=== PATIENT | female | born 1975 | race Caucasian/White ===

== ENCOUNTER 2017-11-26 22:58 | Emergency (ER) | payer BC ==
[2017-11-26 23:55] LABS: ABS Basophils 0.1 10^3/ul (0-0.2); ABS Eosinophils 0.1 10^3/ul (0-0.6); ABS Lymphocytes 1.9 10^3/ul (1.0-4.8); ABS Monocytes 0.7 10^3/ul (0-0.8); ABS Neutrophils 6.9 10^3/ul (1.5-7.7); ABS Nucleated RBC 0 10^3/ul; Eosinophil % 0.8 % (0-6); Hematocrit 36 % (35-47); Hemoglobin 12.7 g/dl (12.0-16.0); Lymphocyte % 19.9 % (25-47); Mean Corpuscular HGB Conc 35 g/dl (31-36); Mean Corpuscular Hemoglobin 31 pg (27-31); Mean Corpuscular Volume 89 fL (80-97); Mean Platelet Volume 8.3 um3 (7.4-10.4); Nucleated Red Blood Cells % 0.1; Platelet Count 228 10^3/ul (150-450); Red Blood Count 4.07 10^6/ul (4.00-5.40); Red Cell Distribution Width 13 % (10.5-15); White Blood Count 9.6 10^3/ul (3.5-10.8)
[2017-11-27 00:13] LABS: EGFR Non-African American 71.7 (>60)
[2017-11-27] MEDS ORDERED: Metoclopramide IV* 5 MG/ML 2 ML VIAL IV ONE (00:19)
[2017-11-27] MEDS ORDERED: Ketorolac INJ* 30 MG/ML 1 ML VIAL IV PUSH ONE (00:19)
[2017-11-27] MEDS ORDERED: diPHENhydraMINE IV* 50 MG/ML 1 ml VIAL (BENADRYL) IV ONE (00:19)
[2017-11-27] MEDS ORDERED: NS 0.9% 1000 ML* 1,000 ML IV ONE (00:19)
[2017-11-27 01:52] LABS: Urine Appearance Cloudy; Urine Blood Negative (Negative); Urine Color Yellow; Urine Ketones Negative (Negative); Urine Protein Negative (Negative); Urine Specific Gravity 1.017 (1.010-1.030); Urine Urobilinogen Negative (Negative)
[2017-11-27] MEDS ORDERED: Iohexol 300* (CONTRAST) 10 ML SDV IV ONE (02:49)
[2017-11-27 03:47] VITALS: BP 110/68
--- NOTE | 2017-11-27 04:02 | ED ---
Rafael Holley Tariq, scribed for Omi Downs MD on 11/27/17 at 0033 . Abdominal Pain/Female - HPI Summary HPI Summary: A 42 y/o female pt presents to the ED c/o severe abdominal pain. Stomach aches started yesterday, however started become more severe today at 1700. She can move, however it is painful. Additional Sx include nausea. She noticed changes in bowels for the past few weeks as she had diarrhea and constipation. Additionally c/o low-grade fever. Pt denies any urinnation Sx, however, she goes more frequently. PMHx diverticulitis (2 years ago). - History of Current Complaint Chief Complaint: EDAbdPain Stated Complaint: ABD PAIN Time Seen by Provider: 11/26/17 23:39 Hx Obtained From: Patient Hx Last Menstrual Period: 2 weeks ago Onset/Duration: Sudden Onset, Lasting Days Severity Initially: Mild Severity Currently: Severe Pain Intensity: 9 Pain Scale Used: 0-10 Numeric Location: Other - Unspecified lower abdominal pain Aggravating Factor(s): Nothing Alleviating Factor(s): Nothing Associated Signs and Symptoms: Positive: Urinary Symptoms - More frequent breaks , Nausea, Diarrhea Allergies/Adverse Reactions: Allergies Allergy/AdvReac Type Severity Reaction Status Date / Time Cephalosporins Allergy Anaphylatic Verified 11/26/17 23:03 Shock PMH/Surg Hx/FS Hx/Imm Hx Endocrine/Hematology History: Denies: Hx Diabetes Psychiatric History: Reports: Hx Anxiety - ON DAILY MEDS - Surgical History Surgery Procedure, Year, and Place: 1984 LEFT ARM FRACTURE [facility]. 1995 & 2002 bilateral LEFT knee [facility]. 05/2009 RT [facility] Hx Anesthesia Reactions: No Infectious Disease History: No Infectious Disease History: Denies: Hx Clostridium Difficile, Hx Hepatitis, Hx Human Immunodeficiency Virus (HIV), Hx of Known/Suspected MRSA, Hx Shingles, Hx Tuberculosis, Hx Known/ Suspected VRE, Hx Known/Suspected VRSA, History Other Infectious Disease, Traveled Outside the [place] in Last 30 Days - Family History Known Family History: Negative: Cardiac Disease, Hypertension, Diabetes, Seizure Disorder - Social History Alcohol Use: Weekly Alcohol Amount: 2-3 GLASSES WINE/WEEK Substance Use Type: Reports: None Smoking Status (MU): Never Smoked Tobacco Have You Smoked in the Last Year: No Review of Systems Negative: Fever Positive: Abdominal Pain, Diarrhea Positive: no symptoms reported - frequent breaks All Other Systems Reviewed And Are Negative: Yes Physical Exam - Summary Physical Exam Summary: Appearance: Well appearing, no pain distress Skin: warm, dry, reflects adequate perfusion Head/face: normal Eyes: EOMI, DWAYNE ENT: normal, mucous membranes moist. Neck: supple, non-tender Respiratory: CTA, breath sounds present Cardiovascular: RRR, pulses symmetrical Abdomen: guarded LLQ, decreased bowel sounds, tender RLQ Bowel Sounds: present Musculoskeletal: normal, strength/ROM intact Neuro: normal, sensory motor intact, A&Ox3 Triage Information Reviewed: Yes Vital Signs On Initial Exam: Initial Vitals Temp Pulse Resp BP Pulse Ox 98.4 F 100 18 125/92 99 11/26/17 23:00 11/26/17 23:00 11/26/17 23:00 11/26/17 23:00 11/26/17 23:00 Vital Signs Reviewed: Yes Diagnostics - Vital Signs Vital Signs Temp Pulse Resp BP Pulse Ox 11/26/17 23:00 98.4 F 100 18 125/92 99 - Laboratory Lab Results: Lab Results 11/26/17 11/26/17 11/26/17 Range/Units 23:48 23:48 23:48 WBC 9.6 (3.5-10.8) 10^3/ul RBC 4.07 (4.00-5.40) 10^6/ul Hgb 12.7 (12.0-16.0) g/dl Hct 36 (35-47) % MCV 89 (80-97) fL MCH 31 (27-31) pg MCHC 35 (31-36) g/dl RDW 13 (10.5-15) % Plt Count 228 (150-450) 10^3/ul MPV 8.3 (7.4-10.4) um3 Neut % (Auto) 71.5 (38-83) % Lymph % (Auto) 19.9 L (25-47) % [place] % (Auto) 7.2 H (0-7) % Eos % (Auto) 0.8 (0-6) % Baso % (Auto) 0.6 (0-2) % Absolute Neuts (auto) 6.9 (1.5-7.7) 10^3/ul Absolute Lymphs (auto) 1.9 (1.0-4.8) 10^3/ul Absolute Monos (auto) 0.7 (0-0.8) 10^3/ul Absolute Eos (auto) 0.1 (0-0.6) 10^3/ul Absolute Basos (auto) 0.1 (0-0.2) 10^3/ul Absolute Nucleated RBC 0 10^3/ul Nucleated RBC % 0.1 Sodium 135 (135-145) mmol/L Potassium 3.7 (3.5-5.0) mmol/L Chloride 101 (101-111) mmol/L Carbon Dioxide 24 (22-32) mmol/L Anion Gap 10 (2-11) mmol/L BUN 12 (6-24) mg/dL Creatinine 0.86 (0.51-0.95) mg/dL Est GFR ( Amer) 92.2 (>60) Est GFR (Non-Af Amer) 71.7 (>60) BUN/Creatinine Ratio 14.0 (8-20) Glucose 121 H (70-100) mg/dL Lactic Acid 1.3 (0.5-2.0) mmol/L Calcium 9.3 (8.6-10.3) mg/dL Total Bilirubin 0.30 (0.2-1.0) mg/dL AST 19 (13-39) U/L ALT 23 (7-52) U/L Alkaline Phosphatase 69 (34-104) U/L C-Reactive Protein 6.59 H (< 5.00) mg/L Total Protein 6.7 (6.4-8.9) g/dL Albumin 4.0 (3.2-5.2) g/dL Globulin 2.7 (2-4) g/dL Albumin/Globulin Ratio 1.5 (1-3) Lipase 31 (11.0-82.0) U/L Beta HCG, Quant < 0.60 mIU/mL Result Diagrams: 11/26/17 23:48 11/26/17 23:48 Lab Statement: Any lab studies that have been ordered have been reviewed, and results considered in the medical decision making process. - CT CT A/P CT Interpretation Completed By: Radiologist - DOMINANT FOLLICLE IN THE LEFT OVARY. ED PHYSICIAN REVIEWED THIS RADIOLOGY REPORT. Re-Evaluation - Re-Evaluation First Eval Re-Evaluation Time: 03:43 Change: Improved Comment: PAIN HAS REALLY IMPROVED Abdominal Pain Fem Course/Dx - Course Course Of Treatment: Patient with no fever on entry but developed a low-grade fever shortly thereafter. She has history of diverticulitis with left lower quadrant/pelvic pain. She has hadsexual partners and no vaginal discharge. She is not bleeding irregularly. She was treated for discomfort here with great relief. A CT scan with contrast was performed and showed no diverticulitis. There is an incidental 2 CM LEFT OVARIAN DOMINANT FOLLICLE/ CYST. This is the exact area of her discomfort. Ultrasound is on a available to further characterize this at this hour. Again her pain is largely resolved making torsion unlikely, especially with a small cyst as lead point. Laboratories are benign-appearing. Patient will follow up closely with a call to her primary care physician in the morning. - Diagnoses Differential Diagnosis: Positive: Constipation, Diverticulitis, Ovarian Cyst, Pancreatitis, Urinary Tract Infection Provider Diagnoses: LUQ pain, Left ovarian cyst Discharge - Sign-Out/Discharge Documenting (check all that apply): Discharge/Admit/Transfer - Discharge - Discharge Plan Condition: Improved Disposition: HOME Prescriptions: Naproxen [Naproxen 500 mg tab] 500 mg PO BID PRN #10 tablet.dr PRN Reason: Pain Ondansetron [Zofran Odt] 4 mg PO TID PRN #6 tab.rapdis PRN Reason: Nausea Patient Education Materials: Ovarian Cyst (ED) Referrals: Xu Jessica MD [Primary Care Provider] - Additional Instructions: Call in the morning for follow up with your doctor. If you're still having discomfort a pelvic ultrasound can be obtained. Stay well-hydrated. Return with increased fever, worsening of pain, vomiting, new symptoms or other concerns as discussed. - Billing Disposition and Condition Condition: IMPROVED Disposition: Home The documentation as recorded by the Rafael mcintosh Tariq accurately reflects the service I personally performed and the decisions made by me, Omi Downs MD.
--- NOTE | 2017-11-27 08:13 | RAD ---
INDICATION: Left lower quadrant pain, history of diverticulitis. COMPARISON: Comparison is made with a prior study from March 16, 2016. TECHNIQUE: A CT scan of the abdomen and pelvis was performed with intravenous and with oral contrast following intravenous injection of 102 ml of Omnipaque 300 nonionic contrast. Contiguous axial sections were obtained from the lung bases through the symphysis pubis. Images were reconstructed in the coronal and sagittal planes. FINDINGS: The lung bases are clear. No pleural effusion is present. The liver and spleen are within normal limits in size without significant focal abnormality. No calcified gallstones are seen. The pancreas appears to be within normal limits in size. The kidneys and adrenal glands are normal in size. No hydronephrosis is seen. No significant focal renal abnormality is seen. The aorta is normal in caliber and demonstrates homogeneous contrast opacification. No significant enlarged retroperitoneal lymph nodes are seen. The stomach, small and large bowel appear nondistended. The appendix is within normal limits. There is mild to moderate descending and sigmoid diverticulosis without evidence for diverticulitis. There is a small periumbilical hernia containing fat. The uterus is normal in size. There are bilateral ovarian cysts measuring 2.1 cm on the right and 2.5 cm on the left. No free intraperitoneal air or fluid is seen. There is a mildly sclerotic lesion within the L1 vertebral body which is unchanged from the prior study. No other focal osseous abnormalities are seen. IMPRESSION: BILATERAL OVARIAN CYSTS DESCRIBED. IF THE PATIENT'S SYMPTOMS PERSIST CONSIDER FOLLOW-UP PELVIC ULTRASONOGRAPHY FOR FURTHER EVALUATION.
== END 2017-11-27 03:57 | disposition home or self-care (01) ==
LOC: ED 22:58
DX: N83.202 Unspecified ovarian cyst, left side (principal); R10.12 Left upper quadrant pain; R19.7 Diarrhea, unspecified; R11.0 Nausea; Z87.19 Personal history of other diseases of the digestive system
CPT/HCPCS: 36415; 74177; 80053; 81003; 83605; 83690; 84702; 85025; 86140; 96374; 96375; 99284; J1200; J1885; J2765; Q9967

== ENCOUNTER 2018-09-20 11:01 | Day surgery (SDC) | payer BC ==
--- NOTE | 2018-09-12 12:54 | HP ---
PREOPERATIVE HISTORY AND PHYSICAL: DATE OF SURGERY/ADMISSION: 09/20/18 DATE OF OFFICE VISIT/ENCOUNTER: 09/04/18 ATTENDING SURGEON: Melanie Villalpando MD* (dictated by SOHAN Melendez). PROCEDURE: Left elbow implant removal, possible open reduction and internal fixation, possible iliac crest bone graft, possible soft tissue allograft. HISTORY OF PRESENT ILLNESS: This is a 43-year-old female who underwent a radial head excision and replacement in 2016 after she suffered a fracture. She had done quite well with that and regained the vast majority of her motion. Unfortunately on 06/30/18, she tripped over a curb and fell and landed on her hands and knees and suffered a periprosthetic fracture of the radial neck. The radial head implant has become loosened. Since then, her pain has improved and subsequent x-rays have showed some remodeling at the fracture site; however, the prosthetic radial head shows evidence of loosening. Dr. Villalpando is recommending surgical intervention at this time for resolution of the problem. The patient reports that she had significant nausea related to anesthesia during her surgery in 2016 and scopolamine patch was quite helpful. PAST MEDICAL HISTORY: Unremarkable. PAST SURGICAL HISTORY: 1. Left elbow radial head replacement in 2016. 2. Bilateral knee surgeries x2. 3. Left wrist closed reduction. CURRENT MEDICATIONS: None. ALLERGIES: CEPHALOSPORINS cause anaphylaxis. FAMILY MEDICAL HISTORY: Breast cancer. 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 She denies tobacco use and recreational drug use. She drinks alcohol on occasion approximately 2 to 3 times per week. REVIEW OF SYSTEMS: Negative for general, cephalic, cardiovascular, respiratory , GI, , other musculoskeletal, integumentary, endocrine, neurologic and hematologic symptoms. Infectious Disease: Negative for MRSA, hepatitis C, HIV. PHYSICAL EXAMINATION GENERAL: A well-developed, well-nourished 43-year-old female, in no acute distress. VITAL SIGNS: Height 5 feet 8 inches, weight 204 pounds. Pulse rate 68, blood pressure 114/80. HEENT: Normocephalic, atraumatic. Pupils are equal, round and reactive to light and accommodation. Extraocular movements are intact. Throat is clear. NECK: Supple. No palpable lymph nodes. PULMONARY: Lungs are clear to auscultation bilaterally. No wheezes, rales, or rhonchi. CARDIOVASCULAR: Regular rate and rhythm. S1 and S2. No murmurs, rubs, or gallops. No edema. ABDOMEN: Positive bowel sounds. Soft, nontender. NEUROLOGICAL: Alert and oriented x3. Cranial nerves II through XII are intact. Sensation is intact to light touch. MUSCULOSKELETAL: On exam of her left elbow, she has limitations in her range of motion, can supinate to approximately 45 degrees. She lacks about 20 degrees of flexion and can flex to near 100 degrees. She has full pronation. Neurovascular function is intact. DIAGNOSTIC STUDIES: Imaging studies of the left elbow shows some remodeling at the fracture site, but it appears that the prosthetic component has loosened. IMPRESSION: Left elbow with loosening of prosthetic radial head after periprosthetic fracture. PLAN: The patient is scheduled to undergo surgery with Dr. Villalpando on 09/20/18, it will be a left elbow implant removal, possible open reduction and internal fixation, possible iliac crest bone graft, possible soft tissue allograft. Prescriptions for [place] and Zofran were e-scribed to the patient's pharmacy for postoperative pain management and associated nausea. SOHAN MELENDEZ [id number]/[facility] #: [id number] MARINO
[~2018-09-20 11:01] MED LIST: Buffered Lidocaine 1% SYRIN* 1 ML/SYRINGE INTRADERM ONE; Dexamethasone TAB* 4 MG ONE; Dexamethasone TAB* 4 MG PO ONE; DiMENhydriNATE IV* 50 MG/ML VIAL IV PUSH PRN; Famotidine IV* 10 MG/ML 2 ML (20 mg) IV ONE; Famotidine IV* 10 MG/ML 2 ML (20 mg) ONE; Lactated Ringers 1000 ML Bag* 1,000 ML IV SCH; Morphine 4 MG/ML VIAL (1 ml) 4 MG/ML VIAL IV PRN; Naloxone* 0.4 MG/ML 1 ML VIAL IV PRN; Ondansetron ODT TAB* 4 MG ONE; Ondansetron TAB* 4 MG PO ONE; PROCHLORPERAZINE INJ 5 MG/ML 2 ML VIAL IV PRN; fentaNYL* 50 MCG/ML 2 ML VIAL (100 MCG VIAL) IV PRN; oxyCODONE/Acetamin 5/325 MG* TAB PO PRN
[2018-09-20] MEDS ORDERED: ceFAZolin 2 GM PREMIX in ORs 0 GM/0 ML BAG IVPB ONE (11:17)
[2018-09-20] MEDS ORDERED: fentaNYL* 50 MCG/ML 2 ML VIAL (100 MCG VIAL) ONE (11:22)
[2018-09-20] MEDS ORDERED: Midazolam* 1 MG/ML 5 ML VIAL (5 MG) ONE (11:23)
[2018-09-20] MEDS ORDERED: Lidocaine 2% PF * 5 ML VIAL ONE (11:23)
[2018-09-20] MEDS ORDERED: Propofol* 10 MG/ML 20 ML BTL ONE (11:23)
[2018-09-20] MEDS ORDERED: Clindamycin 900 MG/D5W BAG(*) 900 MG/50 ML BAG IVPB ONE (11:29)
[2018-09-20] MEDS ORDERED: Scopolamine 1.5 mg* PATCH ONE (11:35)
[2018-09-20] MEDS ORDERED: Bupivacaine 0.5% SDV PF* 30ML VIAL ONE (11:54)
[2018-09-20] MEDS ORDERED: PROCHLORPERAZINE INJ 5 MG/ML 2 ML VIAL ONE (12:02)
[2018-09-20] MEDS ORDERED: Ketorolac INJ* 30 MG/ML 1 ML VIAL ONE (12:02)
[2018-09-20] MEDS ORDERED: Morphine 10 MG/ML VIAL (1 ml) ONE (12:16)
[2018-09-20] MEDS ORDERED: Acetaminophen IV 1GM/100ML * 100 ML ONE (13:30)
[2018-09-20] MEDS ORDERED: DiMENhydriNATE IV* 50 MG/ML VIAL ONE (14:12)
[2018-09-20 15:08] VITALS: BP 121/75
--- NOTE | 2018-09-20 21:07 | OP ---
CC: Dr. Villalpando OPERATIVE REPORT: DATE OF OPERATION: 09/20/18 DATE OF : 71 SURGEON: Melanie Villalpando MD CRYPTANALYST: SOHAN Melendez ANESTHESIA: General. PRE-OP DIAGNOSIS: Radial neck fracture status post radial head implant. POST-OP DIAGNOSIS: Radial neck fracture status post radial head implant. OPERATIVE PROCEDURE: Implant removal left elbow and debridement in the left elbow. ESTIMATED BLOOD LOSS: Zero. TOURNIQUET TIME: About 40 minutes. INDICATION FOR PROCEDURE: Zonia is a 43-year-old female who suffered a radial head fracture in . I placed a radial head implant. After the surgery, she did well, but had some mild chronic pain. She was able to do all of her activities. About 2 to 3 months ago, she tripped on a sidewalk in [facility] and fell on her outstretched left hand and suffered an injury of the same elbow. X-ray sh owed a loosened radial head implant as well as a fracture of the radial neck. I decided to let the f racture heal and she presents now for implant removal. She has regained most of her range of motion since the fracture. We planned also for possible ORIF and possible allograft spacer implant; however , the patient has an allergy to cephalosporin and the implant AlloDerm is treated with cephalosporin, so it was decided during the procedure not to place the implant. DESCRIPTION OF PROCEDURE: The patient was brought to the operating room, was given a general anesthe tic and placed in the supine position on the operating table with the tourniquet around her left uppe r arm. The skin of her left upper extremity was prepped and draped in the usual sterile fashion. Th e upper extremity were exsanguinated and the tourniquet elevated to 250 mmHg. The scar was incised a nd we dissected through the subcutaneous tissue down to the extensor origin. The muscle fibers were split longitudinally and the elbow joint capsule was also incised longitudinally. We used the approp riate screw auto haulaway driver to disengage the articular component from the shaft of the radial head implant and then the shaft component was removed as well. There was some mild hemosiderin tissue around the elb ow. Cultures were obtained. The elbow was debrided of the synovitis and hemosiderin with a rongeur a nd a curette. The wound was copiously irrigated with saline. The radial neck was palpated. There w ere no loose fragments as far as I could tell. With rotation of forearm, there did not appear to be a ny loose fragments and so I decided not to take down any of the soft tissues surrounding the radial n rizwan to look for fracture fragments. The elbow joint capsule was closed with #1 Vicryl suture. The e xtensor origin was reapproximated with #1 Vicryl suture. The subcutaneous tissue was closed with 2-0 Polysorb and the skin with skin jonathan. The wound was dressed with Xeroform, 4x4, Webril, and Zana w rap. The patient tolerated the procedure well and was brought to the recovery room in good condition . [id number]/[facility] #: [id number]
== END 2018-09-20 14:58 | disposition home or self-care (01) ==
LOC: OREAST 11:01
PROVIDERS: ATTEND Orthopaedic Surgery
DX: T85.698A Other mechanical complication of other specified internal prosthetic devices, implants and grafts, initial encounter (principal); Y83.1 Surgical operation with implant of artificial internal device as the cause of abnormal reaction of the patient, or of later complication, without mention of misadventure at the time of the procedure; S52.135A Nondisplaced fracture of neck of left radius, initial encounter for closed fracture; W01.0XXA Fall on same level from slipping, tripping and stumbling without subsequent striking against object, initial encounter; Y92.480 Sidewalk as the place of occurrence of the external cause
CPT/HCPCS: 81025; 87070; 87073; 87205; 88300; A9270-GY; J0690; J0780; J1240; J1885; J2250; J2270; J2704; J3010; J3490; J8540

== ENCOUNTER 2018-09-24 14:31 | Emergency (ER) | payer BC ==
--- NOTE | 2018-09-24 14:55 | ED ---
Throat Pain/Nasal Congestion - HPI Summary HPI Summary: A 43 y/o female presents to [facility] with a chief complaint of blurred vision on her right side for about one hour [employer]. She had elbow surgery on 09/20/[address] Villalpando and was given a Scopolamine patch. She placed this patch behind her right ear. She denies rubbing her eye after putting her patch on. She discussed her symptoms with Dr. Villalpando, who informed the patient to take the patch off and come to the ED. At triage she rated her pain as a 0/10 in severity. She has no other complaints. - History of Current Complaint Chief Complaint: EDEyeProblem Time Seen by Provider: 09/24/18 14:47 Hx Obtained From: Patient Onset/Duration: Sudden Onset, Lasting Minutes, Still Present Severity: Mild Associated Signs And Symptoms: Positive: Negative - fever Cough: None - Allergies/Home Medications Allergies/Adverse Reactions: Allergies Allergy/AdvReac Type Severity Reaction Status Date / Time Cephalosporins Allergy Anaphylatic Verified 09/24/18 14:45 Shock PMH/Surg Hx/FS Hx/Imm Hx Endocrine/Hematology History: Denies: Hx Diabetes Cardiovascular History: Denies: Hx Hypertension History: Denies: Hx Renal Disease Psychiatric History: Reports: Hx Anxiety - ON DAILY MEDS - Surgical History Surgery Procedure, Year, and Place: 1984 LEFT ARM FRACTURE [facility]. 1995 & 2002 bilateral LEFT knee [facility]. 05/2009 RT [facility] Hx Anesthesia Reactions: No Infectious Disease History: No Infectious Disease History: Denies: Hx Clostridium Difficile, Hx Hepatitis, Hx Human Immunodeficiency Virus (HIV), Hx of Known/Suspected MRSA, Hx Shingles, Hx Tuberculosis, Hx Known/ Suspected VRE, Hx Known/Suspected VRSA, History Other Infectious Disease, Traveled Outside the [place] in Last 30 Days - Family History Known Family History: Negative: Cardiac Disease, Hypertension, Diabetes, Seizure Disorder - Social History Alcohol Use: Weekly Alcohol Amount: 2-3 GLASSES WINE/WEEK Substance Use Type: Reports: None Smoking Status (MU): Never Smoked Tobacco Have You Smoked in the Last Year: No Review of Systems Negative: Fever Positive: Blurred Vision - right sided All Other Systems Reviewed And Are Negative: Yes Physical Exam - Summary Physical Exam Summary: Appearance: The patient is well-nourished in no acute distress and in no acute pain. Skin: The skin is warm and dry and skin color reflects adequate perfusion. HEENT: The head is normocephalic and atraumatic. Right pupil is dilated and unreactive. The conjunctivae are clear and without drainage. Nares are patent and without drainage. Mouth reveals moist mucous membranes and the throat is without erythema and exudate. The external ears are intact. The ear canals are patent and without drainage. The tympanic membranes are intact. Neck: The neck is supple with full range of motion and non-tender. There are no carotid bruits. There is no neck vein distension. Respiratory: Chest is non-tender. Lungs are clear to auscultation and breath sounds are symmetrical and equal. Cardiovascular: Heart is regular rate and rhythm. There is no murmur or rub auscultated. There is no peripheral edema and pulses are symmetrical and equal. Abdomen: The abdomen is soft and non-tender. There are normal bowel sounds heard in all four quadrants and there is no organomegaly palpated. Musculoskeletal: There is no back tenderness noted. Extremities are non-tender with full range of motion. There is good capillary refill. There is no peripheral edema or calf tenderness elicited. Neurological: Patient is alert and oriented to person, place and time. The patient has symmetrical motor strength in all four extremities. Cranial nerves are grossly intact. Deep tendon reflexes are symmetrical and equal in all four extremities. Psychiatric: The patient has an appropriate affect and does not exhibit any anxiety or depression. Triage Information Reviewed: Yes Vital Signs On Initial Exam: Initial Vitals Temp Pulse Resp BP Pulse Ox 99.2 F 81 18 125/88 95 09/24/18 14:40 09/24/18 14:40 09/24/18 14:40 09/24/18 14:40 09/24/18 14:40 Vital Signs Reviewed: Yes Diagnostics - Vital Signs Vital Signs Temp Pulse Resp BP Pulse Ox 09/24/18 14:40 99.2 F 81 18 125/88 95 - Laboratory Lab Statement: Any lab studies that have been ordered have been reviewed, and results considered in the medical decision making process. EENT Course/Dx - Course Course Of Treatment: Ms. Dunn was nontoxic in appearance with stable vital signs and a dilated right pupil. I think this is a medication reaction and recommended waiting it out. She was given ophthalmological follow-up in case it does not resolve by tomorrow. - Diagnoses Provider Diagnoses: Medication reaction Discharge - Sign-Out/Discharge Documenting (check all that apply): Patient Departure - DC Patient Received Moderate/Deep Sedation with Procedure: No - Discharge Plan Condition: Stable Disposition: HOME Referrals: Xu Jessica MD [Primary Care Provider] - (2-3 days) Additional Instructions: Expect complete relief in 24 hours, follow up with ophthalmology if not. Return to the ED if you experience any new or worsening symptoms. - Billing Disposition and Condition Condition: STABLE Disposition: Home - Attestation Statements Document Initiated by Scribe: Yes Documenting Scribe: Garrett Casarez Provider For Whom Scribe is Documenting (Include Credential): Lupillo Lopez MD Scribe Attestation: I, Garrett Casarez, scribed for Lupillo Lopez MD on 09/24/18 at 1615. Scribe Documentation Reviewed: Yes Provider Attestation: The documentation as recorded by the Garrett mcintosh accurately reflects the service I personally performed and the decisions made by me, Lupillo Lopez MD Status of Scribe Document: Viewed
--- OUTSIDE RECORDS SUMMARY | 2018-09-24 15:07 | XMS REPORT | Continuity of Care Document ---
:1975 External Reference #:[id number] Author Name Sydnie Read Care Team Providers Name Role Phone Xu Jessica MD Primary Care Physician Unavailable Payers Date Identification Numbers Payment Provider Subscriber Effective: 2008 Policy Number: [id number] Blue Shield Ppo Terence Hunt Expires: 2016 PayID: [id number] [address] [address] [place] [address] Expires: 2018 Policy Number: [id number] Blue Shield Ppo Terence Hunt PayID: [id number] [address] [address] [place] [address] Policy Number: [id number] [employer] Terence Hutn PayID: [id number] [address] [address] [place] [address] Advance Directives Description No Information Available Problems Description No Information Family History Date Family Member(s) Observation Comments General Cancer Mother Breast Cancer diagnosed age 60 Maternal Grandmother Uterine Cancer Social History Type Date Description Comments Sex Unknown 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 Occasionally consumes alcohol Tobacco Use Start: Unknown Patient has never smoked Smoking Status Reviewed: 09/04/18 Patient has never smoked Exercise Exercises regularly 3x/week Type/Frequency Allergies, Adverse Reactions, Alerts Date Description Reaction Status Severity Comments 01/31/2016 Cephalosporins Active anaphylaxis shock 01/31/2016 NKDA Inactive Medications Medication Date Status Form Strength Qnty SIG Indications Ordering Provider No Active 09/04/ Active Unknown Medications 2018 No Active 11/27/ Hx Unknown Medications 2017 - 2018 Clindamycin 04/07/ Hx Capsules 300mg 2caps 2 tabs po Melanie HCL 2016 - 1 hour Villalpando, 11/26/ prior to M.D. 2017 dental work Amoxicillin 03/21/ Hx Capsules 500mg 8caps 4 tablets Melanie 2015 - 1 hour Villalpando, 04/07/ before M.D. 2016 dental work Scopolamine 02/02/ Hx Patch 1.5mg/72 4units Apply 1 2015 - HR disc Villalpando, 02/16/ behind M.D. 2016 ear. Replace q 3 days prn nausea. Cryounit 02/02/ Hx Apply to Melanie 2016 - affected Villalpando, 02/16/ are as M.D. 2016 directed prn pain and swelling Ketorolac 02/01/ Hx Tablets 10mg 20tabs 1 tab by Melanie Tromethamine 2015 - mouth Villalpando, 02/16/ every 6 M.D. 2016 hours Oxycodone HCL 01/30/ Hx Tablets 5mg 40tabs 1-2 tab Melanie 2015 - by mouth Villalpando, 02/08/ every 4-6 M.D. 2016 hours as neededfor pain DO Not fill until 02/01/16 Ondansetron / Hx Tablets 4mg Unknown 0000 - Dispers 2015 Oxycodone HCL / Hx Tablets 5mg Unknown 0000 - 2015 Sertraline HCL / Hx Tablets 25mg Unknown 0000 - 2015 Wvl-Lj-Vqdvlsd / Hx Tablets 0.18/0.215 Unknown c 0000 - /0.25 11/26/ mg-25 mcg 2017 Ibuprofen / Hx Tablets 600mg one four Unknown 0000 - times a day with 2019 food Tylenol / Hx Unknown 0000 - 2018 Immunizations Description No Information Available Vital Signs Date Vital Result Comment 09/04/2018 1:26pm Height 68 inches 5'8" Weight 204.00 lb Heart Rate 68 /min BP Systolic 114 mmHg BP Diastolic 80 mmHg Respiratory Rate 16 /min Body Temperature 97.9 F Pain Level 0 Pain increases to a 3 when doing activities BMI (Body Mass Index) 31.0 kg/m2 08/15/2018 1:29pm Height 68 inches 5'8" Heart Rate 82 /min BP Systolic 102 mmHg BP Diastolic 68 mmHg Respiratory Rate 18 /min Body Temperature 98.1 F Pain Level 3 07/24/2018 8:19am Height 68 inches 5'8" Heart Rate 84 /min BP Systolic 118 mmHg BP Diastolic 74 mmHg Respiratory Rate 18 /min Pain Level 4 07/11/2018 9:26am Height 68 inches 5'8" Weight 205.00 lb BP Systolic 126 mmHg BP Diastolic 82 mmHg Respiratory Rate 15 /min Body Temperature 96.6 F Pain Level 6 BMI (Body Mass Index) 31.2 kg/m2 07/03/2018 8:57am Height 68 inches 5'8" Weight 205.00 lb Heart Rate 72 /min BP Systolic 118 mmHg BP Diastolic 70 mmHg Body Temperature 98.2 F Pain Level 5 BMI (Body Mass Index) 31.2 kg/m2 11/27/2017 1:38pm Height 68 inches 5'8" Weight 206.00 lb Heart Rate 76 /min BP Systolic 108 mmHg BP Diastolic 70 mmHg O2 % BldC Oximetry 96 % BMI (Body Mass Index) 31.3 kg/m2 04/13/2016 1:26pm Height 68 inches 5'8" Weight 190.00 lb Pain Level 0 BMI (Body Mass Index) 28.9 kg/m2 03/16/2016 11:34am Height 68 inches 5'8" Weight 190.00 lb BP Systolic 104 mmHg BP Diastolic 68 mmHg BMI (Body Mass Index) 28.9 kg/m2 02/24/2016 1:53pm Height 68 inches 5'8" Weight 190.00 lb Pain Level 3 BMI (Body Mass Index) 28.9 kg/m2 02/10/2016 2:53pm Height 68 inches 5'8" Weight 190.00 lb Heart Rate 96 /min BP Systolic 135 mmHg BP Diastolic 86 mmHg BMI (Body Mass Index) 28.9 kg/m2 02/03/2016 1:25pm Height 68 inches 5'8" Weight 180.00 lb Pain Level 7 BMI (Body Mass Index) 27.4 kg/m2 01/31/2016 9:29am Height 68 inches 5'8" Weight 180.00 lb Heart Rate 64 /min BP Systolic Sitting 112 mmHg BP Diastolic Sitting 64 mmHg Respiratory Rate 16 /min Pain Level 5 BMI (Body Mass Index) 27.4 kg/m2 Results Test Date Facility Test Result H/L Range Note Laboratory test 07/03/2018 [facility] C Reactive 2.97 mg/L N < 8.[address] [place] [address] [phone] Erythrocyte Sed Rate 33 mm/Hr High 0-14 CBC Auto Diff 07/03/2018 [facility] White Blood 5.9 10^3/uL N 3.5-10.[address] [place] [address] [phone] Red Blood Count 4.20 10^6/uL N 4.00-5.40 Hemoglobin 12.8 g/dL N 12.0-16.0 Hematocrit 38 % N 35-47 Mean Corpuscular Volume 89 fL N 80-97 Mean Corpuscular Hemoglobin 30 pg N 27-31 Mean Corpuscular HGB Conc 34 g/dL N 31-36 Red Cell Distribution Width 13 % N 10.5-15 Platelet Count 327 10^3/uL N 150-450 Mean Platelet Volume 8.1 fL N 7.4-10.4 Abs Neutrophils 3.6 10^3/uL N 1.5-7.7 Abs Lymphocytes 1.7 10^3/uL N 1.0-4.8 Abs Monocytes 0.5 10^3/uL N 0-0.8 Abs Eosinophils 0.1 10^3/uL N 0-0.6 Abs Basophils 0 10^3/uL N 0-0.2 Abs Nucleated RBC 0 10^3/uL Granulocyte % 62.2 % Lymphocyte % 28.3 % Monocyte % 7.7 % Eosinophil % 1.1 % Basophil % 0.7 % Nucleated Red Blood Cells % 0 Laboratory test 11/27/2017 [facility] Cytology SEE RESULT [address] [place] [address] [phone] GC/Chlamydia 11/27/2017 [facility] Chlamydia Negative Negative Amplified Rna [address] [place] [address] [phone] Neisseria gonorrhoeae (GC) Rna Negative Negative Laboratory test 02/01/2016 [facility] Surgical SEE RESULT 2 , [address] [place] [address] [phone] 1 SEE RESULT BELOW Name: MARCELA HUNT : [address]: Gianna Cohen MD Acct: [id number] Unit: [id number] AGE: 42 Location: [facility] Re11/27/17 SEX: F Status: REG REF SPEC: [id number] ROCK: 11/27/17-[address]: Gianna Cohen MD REQ: [id number] RECD: 11/27/17 STATUS: SOUT _ ORDERED: TP IMAGE ANALYS, HPV/Thin Prep COMMENTS: [id number] Negative for Intraepithelial lesion or Malignancy A. Ectocervical/Endocervical Specimen Adequacy: Satisfactory of evaluation Transformation zone component identified Patient Information: HPV: High risk HPV RNA testing regardless of pap results. Actual Specimen Date: 11/27/17 Last Menstrual Date: 11/09/17 ?: N Post Menopausal?: N Hysterectomy?: N Previous Abnormal Pap Smears?:N Date Time Test Result Flag (u) Normal Range 11/27/17 1435 @ HPV RNA Negative Negative @ @ The high-risk HPV types detected by the assay include: 16, @ 18, 31, 33, 35, 39, 45, 51, 52, 56, 58, 59, 66, and 68. Signed by and Reported on: ADIA Chino(ASC) 1513 This Pap test was evaluated with the assistance of the RuckPackPrep Test Imaging System. Due to cytologic findings at the bull bucker microscope, comprehensive manual rescreening by a Electrode Cleaning Machine Operator may be required. The Pap Smear is a screening test designed to aid in the detection of premalignant and malignant conditions of the uterine cervix. It is not a diagnostic procedure and should not be used as the sole means of detecting cervical cancer. Both false- positive and false- negative reports do occur. Depending on your risk status, a Pap smear should be obtained and evaluated every 1-3 years. END OF REPORT DEPARTMENT OF PATHOLOGY, [address] [place] [address] Sandip Pacheco M.D. Director [facility] # [id number] 2 [id number] SEE RESULT BELOW Name: MARCELA HUNT : [address]: Melanie Villalpando MD Acct: [id number] Unit: [id number] AGE: 40 Location: [facility] Re02/01/16 SEX: F Status: REG [facility] SPEC: [id number] ROCK: 02/01/16-[address]: Melanie Villalpando MD REQ: [id number] RECD: 02/01/16 STATUS: SOUT _ ORDERED: Decal, LEVEL V COMMENTS: [id number] FINAL DIAGNOSIS Left radial head, excision: -- Benign bone with organizing hematoma. PRE-OPERATIVE DIAGNOSIS Left radial head fracture GROSS DESCRIPTION The specimen is received in formalin labeled, Left Radial Head, and consists of a 2.3 x 2.0 x 1.5 cm aggregate of conner-white to red-brown irregular bone fragments. Within the aggregate are two connre-white concave bone fragments measuring 2.0 x 1.5 by up to 1.0 cm and 1.8 x 0.7 by up to 1.6 cm. The articular surface is smooth to granular. Rabbet Operator sections are submitted in cassette A following decalcification. Received separately in the same container is a 2.0 x 1.0 x 0.4 cm aggregate of red-brown rubbery blood clot, which is entirely submitted in cassette B. MICROSCOPIC DESCRIPTION Signed (signature on file) Claribel Cast MD [id number] END OF REPORT * ML=Testing performed at Main Lab DEPARTMENT OF PATHOLOGY, [address] [place] [address] Sandip Pacheco M.D. 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 M.D. 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 neck of left C.M.A. 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 of left radius, init for clos fx Office Visit 05/13/2009 [facility] Juvenal Yousif, 995.3 Allergy Unspec 12:45a Assoclinh M.D. Hospitalists Office Visit 03/16/2009 Orthopedic Adrianna Blount PA 836.3 Dislocation Knee 3:15p [facility]er Closed Plan of Treatment Future Appointment(s):09/30/2018 11:30 am - Melanie Villalpando M.D. at [facility]/20/2018 7:30 am - Melanie Villalpando M.D. at [facility]/04/2018 - Melanie Villalpando M.D.S52.132D Displaced fracture of neck of left radius, subsequent encounNew Xrays:Elbow Left 3+VWS, Ordered: Follow up:Follow up: 10-14 days cknohrM64.038D Mechanical loosening of other internal prosthetic joint, subNew Xrays:Elbow Left 3+VWS, Ordered:
[2018-09-24 15:59] VITALS: BP 128/87
== END 2018-09-24 15:53 | disposition home or self-care (01) ==
LOC: ED 14:31
DX: T44.3X5A Adverse effect of other parasympatholytics [anticholinergics and antimuscarinics] and spasmolytics, initial encounter (principal); Y92.9 Unspecified place or not applicable; F41.9 Anxiety disorder, unspecified
CPT/HCPCS: 99281

== ENCOUNTER 2019-08-14 09:05 | Emergency (ER) | payer BC, OTHER ==
[2019-08-14 09:43] VITALS: BP 108/79
[2019-08-14 10:56] LABS: Influenza A Molecular POSITIVE (Negative)
--- NOTE | 2019-08-14 11:10 | UC ---
FLU HPI - HPI Summary HPI Summary: 43-year-old woman comes in with chief complaint of fever chills bodyaches cough chest congestion. 5 days ago she started with influenza-like illness symptoms with fever chills bodyaches headache. Also has been having a cough. Cough is getting worse. She tried ouee-vvo-rrknnto Mucinex DM which is not helping very much. Denies any wheezing no history of asthma. - History of Current Complaint Chief Complaint: UCGeneralIllness Stated Complaint: COUGH CHEST CONGESTION Time Seen by Provider: 08/14/19 10:47 Hx Last Menstrual Period: 07/12/19 Pain Intensity: 6 - Allergy/Home Medications Allergies/Adverse Reactions: Allergies Allergy/AdvReac Type Severity Reaction Status Date / Time Cephalosporins Allergy Anaphylatic Verified 08/14/19 09:43 Shock Home Medications: Home Medications Albuterol HFA INHALER* [Ventolin HFA Inhaler*] 2 puff INH Q4H PRN #1 mdi [Rx] Azithromyxin GUY (NF) [Z-Guy (Zithromax) 250 mg tabs #6] 2 tab PO .TODAY, THEN 1 DAILY #6 tab 08/14/19 [Rx] Benzonatate CAP* [Tessalon 100 MG CAP*] 100 mg PO TID PRN #20 cap 08/14/19 [Rx] guaiFENesin/CODIENE 100mg/10mg [Robitussin AC 100Mg/10Mg in 5 ml] 10 ml PO Q4H PRN #180 ml MDD 60ML 08/14/19 [Rx] PMH/Surg Hx/FS Hx/Imm Hx Previously Healthy: Yes - Surgical History Surgical History: Yes Surgery Procedure, Year, and Place: 1984 LEFT ARM FRACTURE [facility]. 1995 & 2002 bilateral LEFT knee [facility]. 05/2009 RT [facility] - Family History Known Family History: Negative: Cardiac Disease, Hypertension, Diabetes, Seizure Disorder - Social History Alcohol Use: Weekly Alcohol Amount: 2-3 GLASSES WINE/WEEK Substance Use Type: None Smoking Status (MU): Never Smoked Tobacco Have You Smoked in the Last Year: No Review of Systems All Other Systems Reviewed And Are Negative: Yes Constitutional: Positive: Fever, Chills, Other - see hpi Skin: Positive: Negative Eyes: Positive: Negative ENT: Positive: Nasal Discharge Respiratory: Positive: Cough, Other - see hpi Cardiovascular: Positive: Chest Pain - with cough Gastrointestinal: Positive: Negative Motor: Positive: Negative Neurovascular: Positive: Negative Musculoskeletal: Positive: Myalgia Neurological/Mental Status: Positive: Headache Psychological: Positive: Negative Is Patient Immunocompromised?: No Physical Exam Triage Information Reviewed: Yes Appearance: No Pain Distress, Well-Nourished, Ill-Appearing - mild Vital Signs: Initial Vital Signs Temp 99.2 F 08/14/19 09:40 Pulse 94 08/14/19 09:40 Resp 20 08/14/19 09:40 BP 108/79 08/14/19 09:40 Pulse Ox 98 08/14/19 09:40 Vital Signs Reviewed: Yes Eye Exam: Normal Eyes: Positive: Conjunctiva Clear ENT: Positive: Pharynx normal, Nasal congestion, TMs normal Neck: Positive: Supple Respiratory: Positive: No respiratory distress, Rhonchi Cardiovascular: Positive: RRR Musculoskeletal: Positive: Strength Intact, ROM Intact Neurological: Positive: Alert, Muscle Tone Normal Psychological: Positive: Age Appropriate Behavior Skin Exam: Normal Flu Course/Dx - Course Course Of Treatment: Patient's positive for influenza. She has bronchitis symptoms now. We discussed viral versus bacterial infections and the role of antibiotics. We'll treat with Biaxin this time due to her worsening symptoms rather than improving symptoms. Also try albuterol. Prescribed Tessalon Perles and Robitussin-AC to help with cough. We discussed getting a chest x-ray. At this time the plan is to treat and if the patient does not improve she should get reevaluated to determine if a chest x-ray would be beneficial at that time. Patient follow-up primary care doctor get reevaluated if worse or any questions concerns. - Differential Dx/Diagnosis Provider Diagnosis: Influenza, Bronchitis Discharge ED - Sign-Out/Discharge Documenting (check all that apply): Patient Departure All imaging exams completed and their final reports reviewed: No Studies - Discharge Plan Condition: Stable Disposition: HOME Prescriptions: Albuterol HFA INHALER* [Ventolin HFA Inhaler*] 2 puff INH Q4H PRN #1 mdi PRN Reason: Wheezing Azithromyxin GUY (NF) [Z-Guy (Zithromax) 250 mg tabs #6] 2 tab PO .TODAY, THEN 1 DAILY #6 tab Benzonatate CAP* [Tessalon 100 MG CAP*] 100 mg PO TID PRN #20 cap PRN Reason: Cough guaiFENesin/CODIENE 100mg/10mg [Robitussin AC 100Mg/10Mg in 5 ml] 10 ml PO Q4H PRN #180 ml MDD 60ML PRN Reason: Cough Patient Education Materials: Influenza (ED), Acute Bronchitis (ED) Referrals: Xu Jessica MD [Primary Care Provider] - Additional Instructions: FOLLOW UP WITH YOUR DOCTOR IF NOT COMPLETELY IMPROVED. GET REEVALUATED SOONER IF NOT IMPROVED OR WORSE OR ANY QUESTIONS OR CONCERNS. - Billing Disposition and Condition Condition: STABLE Disposition: Home
== END 2019-08-14 11:21 | disposition home or self-care (01) ==
LOC: UCEAST 09:05
DX: J11.1 Influenza due to unidentified influenza virus with other respiratory manifestations (principal); J40 Bronchitis, not specified as acute or chronic; Z88.1 Allergy status to other antibiotic agents
CPT/HCPCS: 99212; G0463